=== PATIENT | male | born 1995 | race Caucasian/White ===

== ENCOUNTER 2016-12-03 23:12 | Emergency (ER) | payer BC, MEDICAID ==
--- NOTE | 2016-12-03 23:55 | ED Physician Chart ---
Chief Complaint/HPI - Patient Information Date Seen:: 12/03/16 Chief Complaint:: altered level consciousness History of Present Illness:: Patient is in [place] on a 5150. They think he overdosed on xanax and valium. His mother came later and said he had been abusing amphetamines and benzodiazepine. He is on a 5150 for suicidal ideation. Allergies:: Allergies Allergy/AdvReac Type Severity Reaction Status Date / Time No Known Allergies Allergy Verified 12/03/16 23:31 Vitals:: Vital Signs - 8 hr 12/03/16 23:15 Temp 98.5 F HR 55 RR 14 BP 95/54 O2 Sat % 97 Historian:: Other (paramedics) Review:: Nurse's Note Reviewed Review of Systems - Review of Systems General/Constitutional: No fever, No chills Skin: No skin lesions Head: No headache Eyes: No loss of vision ENT: No earache Neck: No neck pain Cardio Vascular: No chest pain, No palpitations Pulmonary: No SOB GI: No nausea, No vomiting G/U: No dysuria Musculoskeletal: No bone or joint pain Endocrine: No polyuria Psychiatric: Suicidal ideation Hematopoietic: No bruising Allergic/Immuno: No urticaria Neurological: No syncope Past Medical History - Past Medical History Past Medical History: No significant medical hx Family History: None Social History: Illicit Drug Use Surgical History: None Psychiatricy History: Other (see history) Family Medical History - Family Member Mother History Unknown: Yes Physical Exam - Physical Examination General/Constitutional: Well-developed, well-nourished, Alert, No distress Other Gen/Cons comments:: Somnolent Head: Atraumatic Eyes: Lids, conjuctiva normal, PERRL Other Eyes comments:: Pupils about 1 1/2 mm in diameter Skin: Nl inspection, No rash ENMT: External ears, nose nl, TM canals nl, Nasal exam nl, Lips, teeth, gums nl , Oropharynx nl, Tonsils nl Neck: No nuchal rigidity Respiratory: Nl effort/Exclusion, Clear to Auscultation, No Wheeze/Rhonchi/Rales Cardio Vascular: RRR, No murmur, gallop, rubs, NL S1 S2 GI: No tenderness/rebounding/guarding, No organomegaly, No hernia, Normal BS's, Nondistended Extremities: No tenderness or effusion, Full ROM, No edema Neuro/Psych: No focal deficits Misc: Normal back Labs/Radiology/EKG Results - Lab Results Results: Laboratory Results - last 24 hr 12/03/16 12/03/16 12/03/16 23:45 23:45 23:45 WBC 6.0 RBC 4.76 Hgb 15.2 Hct 44.4 MCV 93.3 MCH 31.9 H MCHC Differential 34.2 RDW 11.5 Plt Count 248 MPV 8.7 Neutrophils % 48.2 Lymphocytes % 39.0 Monocytes % 9.1 Eosinophils % 3.1 Basophils % 0.6 Sodium 134 L Potassium 3.4 L Chloride 101 Carbon Dioxide 26.4 Anion Gap 10.0 BUN 24 Creatinine 0.9 Est GFR ( Amer) > 60.0 Est GFR (Non-Af Amer) > 60.0 BUN/Creatinine Ratio 26.7 Glucose 109 H Calcium 9.5 Salicylates Acetaminophen < 10.0 L Ethyl Alcohol 12/03/16 12/03/16 23:45 23:45 WBC RBC Hgb Hct MCV MCH MCHC Differential RDW Plt Count MPV Neutrophils % Lymphocytes % Monocytes % Eosinophils % Basophils % Sodium Potassium Chloride Carbon Dioxide Anion Gap BUN Creatinine Est GFR ( Amer) Est GFR (Non-Af Amer) BUN/Creatinine Ratio Glucose Calcium Salicylates < 25.0 L Acetaminophen Ethyl Alcohol < 10 Assessment - Assessment General Assessment: Mother stated at about 2300 she learned recent patient had been using benzodiazepines and methamphetamines. He was placed under a 5150 and admitted to [facility] because of a suicide threat. At about 0230 patient ambulated normally to the bathroom ED Septic Shock - . Is Septic Shock (SBP<90, OR Lactate>4 mmol\L) present?: No - <6hrs of presentation: Vital Signs: Vital Signs - 8 hr 12/03/16 23:15 Temp 98.5 F HR 55 RR 14 BP 95/54 O2 Sat % 97 Reassessment (Disposition) - Reassessment Reassessment Condition:: Improved - Diagnosis Diagnosis:: Multi drug abuse. Patient medically cleared to return [facility]. - Aftercare/Follow up Instructions Aftercare/Follow-Up Instructions:: Refer to Discharge Instructions - Patient Disposition Discharge/Transfer:: [facility] Condition at Disposition:: Stable, Improved
[2016-12-03] MEDS ORDERED: Sodium Chloride 0.9% 2,000 ML IV ONE (23:59)
[2016-12-04 00:02] LABS: % BASOPHILS 0.6 % (0.0-2.0); % EOSINOPHILS 3.1 % (0.0-5.0); % MONOCYTES 9.1 % (2.0-10.0); % NEUTROPHILS 48.2 % (40.0-80.0); HEMATOCRIT 44.4 % (39.0-49.0); HEMOGLOBIN 15.2 gm/dL (13.2-17.3); MEAN CELL VOLUME 93.3 fl (80-99); MEAN CORPUSCULAR HEMOGLOBIN 31.9 pg (26.0-30.0); MEAN CORPUSCULAR HGB CONC 34.2 pg (28.0-36.0); MEAN PLATELET VOLUME 8.7 fl; PLATELET COUNT 248 Th/cmm (150-400); RED BLOOD COUNT 4.76 Mil/cmm (4.30-5.70); RED CELL DISTRIBUTION WIDTH 11.5 % (11.5-20.0)
[2016-12-04 00:22] LABS: BUN - UREA NITROGEN 24 mg/dL (7-25); BUN/CREATININE RATIO 26.7; CALCIUM SERUM 9.5 mg/dL (8.6-10.3); CARBON DIOXIDE 26.4 mEq/L (21.0-31.0); CHLORIDE 101 mEq/L (98-107); CREATININE - SERUM 0.9 mg/dL (0.7-1.3); GLUCOSE 109 mg/dL (70-105); POTASSIUM SERUM 3.4 mEq/L (3.5-5.1); SODIUM SERUM 134 mEq/L (136-145)
[2016-12-04 03:25] LABS: AMPHETAMINE URINE POSITIVE (NEGATIVE); BARBITURATES URINE NEGATIVE (NEGATIVE)
[2016-12-04 03:26] LABS: METHADONE URINE NEGATIVE (NEGATIVE)
[2016-12-04 03:27] LABS: URINE COLOR YELLOW; URINE GLUCOSE (UA) NEGATIVE (NEGATIVE)
[2016-12-04 03:28] LABS: URINE BILIRUBIN SMALL (NEGATIVE); URINE BLOOD NEGATIVE (NEGATIVE); URINE KETONE NEGATIVE (NEGATIVE); URINE PROTEIN NEGATIVE (NEGATIVE); URINE UROBILINOGEN 0.2 E.U./dL (0.2 - 1.0)
[2016-12-04 03:29] LABS: URINE BACTERIA NONE SEEN /hpf (NONE SEEN); URINE EPITHELIAL CELLS NONE SEEN /lpf (FEW); URINE RBC NONE SEEN /hpf (0-5); URINE WBC NONE SEEN /hpf (0-5)
[2016-12-04] MEDS ORDERED: Tuberculin 5 TU/0.1 mL UD ID ONE (19:02)
== END 2016-12-04 04:46 ==
LOC: ER 23:12
DX: F15.10 Other stimulant abuse, uncomplicated (principal); F19.10 Other psychoactive substance abuse, uncomplicated; F13.20 Sedative, hypnotic or anxiolytic dependence, uncomplicated
CPT/HCPCS: 36415-UA; 80048-TC; 80307; 80320-TC; 80329-TC; 81001-TC; 85025-TC; J7030